=== PATIENT | female | born 1990 | race Two or more races ===

== ENCOUNTER 2020-02-09 13:12 | Emergency (ER) | payer MEDICAID, OTHER ==
[~2020-02-09] VITALS: Ht 172.7 cm; Wt 95.3 kg
[2020-02-09 13:28] VITALS: BP 156/88
== END 2020-02-09 13:57 | disposition left against medical advice (07) ==
LOC: ER 13:12
DX: Z48.01 Encounter for change or removal of surgical wound dressing (principal); Z53.21 Procedure and treatment not carried out due to patient leaving prior to being seen by health care provider

== ENCOUNTER 2021-07-12 15:30 | Emergency (ER) | payer MEDICAID ==
[~2021-07-12] VITALS: Ht 172.7 cm; Wt 83.5 kg
[2021-07-12 15:30] VITALS: BP 138/90
[2021-07-12 15:59] LABS: Basophils # (auto) 0 10 ^3/uL (0-0.2); Basophils % (auto) 0.5 % (0.0-2.0); Eosinophils # (auto) 0 10 ^3/uL (0-0.8); Eosinophils % (auto) 0.5 % (0.0-7.0); Hematocrit 37.9 % (36.0-46.0); Lymphocytes # (auto) 1.8 10 ^3/uL (0.4-5.4); Lymphocytes % (auto) 22.5 % (10.0-50.0); Mean Corpuscular Hgb Conc. 34.5 g/dL (32.0-36.0); Mean Corpuscular Volume 81.4 fL (80.0-100.0); Monocytes # (auto) 0.6 10 ^3/uL (0-1.3); Monocytes % (auto) 7.4 % (0.0-12.0); Neutrophils # (auto) 5.6 10 ^3/uL (1.6-8.6); Neutrophils % (auto) 69.1 % (37.0-80.0); Red Blood Cells 4.65 10^6/uL (4.0-5.20); Red Cell Distribution Width 14.1 % (11.8-14.3); White Blood Cell 8.1 10^3/uL (4.4-10.8)
[2021-07-12 18:32] LABS: Urine Bacteria FEW /hpf (None Seen); Urine Blood Negative /uL (Negative); Urine Specific Gravity 1.004 (1.001-1.035); Urine WBC 1 /hpf (0 - 5)
== END 2021-07-13 02:09 | disposition left against medical advice (07) ==
LOC: ER 15:30
DX: O20.0 Threatened abortion (principal); E11.9 Type 2 diabetes mellitus without complications; Z3A.01 Less than 8 weeks gestation of pregnancy
CPT/HCPCS: 36415; 76801; 81001; 84702; 85025